=== PATIENT | female | born 1995 | race Caucasian/White ===

== ENCOUNTER 2021-07-25 18:07 | Emergency (ER) | payer OTHER ==
[~2021-07-25] VITALS: Ht 162.6 cm; Wt 143.4 kg
[~2021-07-25 18:07] MED LIST: BACTRIM DS 8001 TAB PO
[2021-07-25 18:31] VITALS: TEMP 97.9
[2021-07-25] MEDS ORDERED: FLEXERIL 1010 MG/TAB PO (21:09)
[2021-07-25 21:24] VITALS: BP 116/80; PULSE 75
== END 2021-07-25 22:06 | disposition home or self-care (01) ==
LOC: COL.ER 18:07
DX: S39.012A Strain of muscle, fascia and tendon of lower back, initial encounter (principal); V89.2XXA Person injured in unspecified motor-vehicle accident, traffic, initial encounter; Y92.410 Unspecified street and highway as the place of occurrence of the external cause